=== PATIENT | female | born 1995 | race Two or more races ===

== ENCOUNTER 2018-04-09 08:32 | Emergency (ER) | payer MEDICAID, OTHER ==
[2018-04-09 08:45] VITALS: RESP 18
[2018-04-09 09:18] LABS: HCG,QUALITATIVE URINE POSITIVE (NEGATIVE)
[2018-04-09 09:26] LABS: SQUAMOUS EPITHIAL 25 /hpf (0-5); URINE BACTERIA RARE (<OCC); URINE BILIRUBIN NEGATIVE (NEGATIVE); URINE BLOOD NEGATIVE (NEGATIVE); URINE CLARITY Hazy (Clear); URINE COLOR Amber (YELLOW); URINE GLUCOSE (UA) NORMAL (Normal); URINE LEUKOCYTE ESTERASE NEG Leu/uL (Negative); URINE PROTEIN 2+ mg/dL (NEGATIVE)
--- NOTE | 2018-04-09 09:52 | C.PDOC ---
History Of Present Illness 22 y/o female currently 2 months presents to ED with c/o excessive vomiting for 4 days associated with generalized weakness. Patient is on pre ofe vitamins and reports unable to tolerating fluids or solids. Patient denies fever, chills, vaginal bleeding, diarrhea or any other complaints at this time. Time Seen by Provider: 04/09/18 09:31 Chief Complaint (Nursing): GI Problem History Per: Patient History/Exam Limitations: no limitations Onset/Duration Of Symptoms: Days Current Symptoms Are (Timing): Still Present Past Medical History Reviewed: Historical Data, Nursing Documentation, Vital Signs Vital Signs: Last Vital Signs Temp 97.6 F 04/09/18 08:37 Pulse 104 H 04/09/18 08:37 Resp 18 04/09/18 08:37 BP 135/84 04/09/18 08:37 Pulse Ox 98 04/09/18 08:37 - Medical History PMH: No Chronic Diseases Surgical History: No Surg Hx Family History: States: No Known Family Hx - Social History Hx Alcohol Use: No Hx Substance Use: No - Immunization History Hx Tetanus Toxoid Vaccination: No Hx Influenza Vaccination: No Hx Pneumococcal Vaccination: No Review Of Systems Except As Marked, All Systems Reviewed And Found Negative. Constitutional: Negative for: Fever, Chills Gastrointestinal: Positive for: Vomiting. Negative for: Diarrhea Genitourinary: Negative for: Vaginal Discharge, Vaginal Bleeding Physical Exam - Physical Exam Additional Physical Exam Comments: \Constitutional: No acute distress. Head: Normocephalic. Atraumatic. Eyes: PERRL. ENT: Dry mucous membranes. Neck: Supple. Cardiovascular: Tachycardic Radial pulse 2+ bilaterally. Chest: No tenderness. Respiratory: Clear to auscultation bilaterally. GI: Soft. Nontender. Nondistended. Back: No CVA tenderness. Musculoskeletal: No tenderness or swelling of extremities. Skin: No rash. Neurologic: Alert, no focal deficit. ED Course And Treatment - Laboratory Results Result Diagrams: 04/09/18 10:57 04/09/18 10:57 O2 Sat by Pulse Oximetry: 98 (RA) Pulse Ox Interpretation: Normal Medical Decision Making Medical Decision Making: Plan: Blood work, IV fluids UA shows ketones, small elevation in BHB. Bicarb borderline low. Patient offered admission for continued hydration but she declined and wished to attempt diclegis and f/u with OBGYN. I instructed patient to return to ED for worsening vomiting or weakness. Denies abdominal pain or vaginal bleeding. Disposition - Disposition Disposition: HOME/ ROUTINE Disposition Time: 12:17 Condition: STABLE Additional Instructions: Your prescription medication is made up of 2 active ingredients: Doxylamine, which you can find in [employer] sleeping tablets. Pyridoxine, which is vitamin B6. Prescriptions: Doxylamine/Pyridoxine HCl (B6) [Brianne Casper 10-10 mg Tablet] 2 tab PO QPM #30 tablet. Instructions: Nausea and Vomiting of Forms: [employer] (Col[place]ian) - Clinical Impression Clinical Impression: Vomiting during - Scribe Statement The provider has reviewed the documentation as recorded by the Scribanthony Israel All medical record entries made by the Mariibanthony were at my direction and personally dictated by me. I have reviewed the chart and agree that the record accurately reflects my personal performance of the history, physical exam, medical decision making, and the department course for this patient. I have also personally directed, reviewed, and agree with the discharge instructions and disposition.
[2018-04-09] MEDS ORDERED: Sodium Chloride 0.9% 1,000 ML IV STA (09:53)
[2018-04-09 11:20] LABS: BASO % 0.2 % (0.0-2.0); EOS % 0.1 % (0.0-4.0); HEMOGLOBIN 14.9 g/dL (11.0-16.0); LYMPH # 2.5 K/uL (1.0-4.3); LYMPH % 22.4 % (20.0-40.0); MEAN CELL VOLUME 91.6 fL (81.0-99.0); MEAN CORPUSCULAR HEMOGLOBIN 31.5 pg (27.0-31.0); MEAN CORPUSCULAR HGB CONC 34.4 g/dL (33.0-37.0); MEAN PLATELET VOLUME 9.7 fL (7.2-11.7); MONO # 0.5 K/uL (0.0-0.8); MONO % 4.7 % (0.0-10.0); NEUT # 8.3 K/uL (1.8-7.0); NEUT % 72.6 % (50.0-75.0); RBC 4.72 Mil/uL (3.80-5.20); RED CELL DISTRIBUTION WIDTH 13.5 % (11.5-14.5); WHITE BLOOD COUNT 11.4 K/uL (4.8-10.8)
[2018-04-09 12:11] LABS: ALB/GLOB RATIO 1.2 (1.0-2.1); ALBUMIN 4.5 g/dL (3.5-5.0); ALT/SGPT 43 U/L (9-52); AST/SGOT 39 U/L (14-36); BLOOD UREA NITROGEN 7 mg/dL (7-17); CALCIUM 9.5 mg/dl (8.6-10.4); GFR NON-AFRICAN AMERICAN > 60; LIPASE 61 U/L (23-300)
[2018-04-09 13:10] VITALS: BP 109/65; PULSE 79; TEMP 99.2
[2018-04-09 13:19] VITALS: O2SAT 98
== END 2018-04-09 13:40 | disposition home or self-care (01) ==
LOC: C.ER 08:32
DX: O21.9 Vomiting of pregnancy, unspecified (principal); Z3A.08 8 weeks gestation of pregnancy
CPT/HCPCS: 80053; 81001; 82009; 83690; 84702; 84703; 85025; 96361; 96374; 99284; J2405; J7030